=== PATIENT | male | born 1990 | race American Indian/Alaskan Native ===

== ENCOUNTER 2021-07-31 11:35 | Emergency (ER) | payer SELFPAY ==
[2021-07-31 11:43] VITALS: BP 105/74
--- NOTE | 2021-07-31 11:44 | Emergency Department Report ---
ED General Adult HPI - General Chief complaint: Weakness Stated complaint: BODYACHES PUI?: No Time Seen by Provider: 07/31/21 11:42 Source: patient Mode of arrival: Ambulatory Limitations: No Limitations - History of Present Illness Initial comments: 31 YO MALE COMES TO ER CO GENERALIZED WEAKNESS. WORSE WHEN HE STANDS UP NO FEVER NO CHILLS NO CP NO SOB NOT COVID IMMUNIZED DENIES MED HX - Related Data Allergies Allergy/AdvReac Type Severity Reaction Status Date / Time SHRIMP Allergy Hives Uncoded 07/31/21 11:38 ED Review of Systems ROS: Stated complaint: BODYACHES Other details as noted in HPI Comment: All other systems reviewed and negative ED Past Medical Hx - Past Medical History Previous Medical History?: No - Surgical History Past Surgical History?: No - Family History Family history: no significant - Social History Smoking Status: Never Smoker Substance Use Type: None ED Physical Exam - General Limitations: No Limitations General appearance: alert, in no apparent distress - Head Head exam: Present: atraumatic, normocephalic - Eye Eye exam: Present: normal appearance - ENT ENT exam: Present: mucous membranes moist - Neck Neck exam: Present: normal inspection - Respiratory Respiratory exam: Present: normal lung sounds bilaterally. Absent: respiratory distress - Cardiovascular Cardiovascular Exam: Present: regular rate, normal rhythm. Absent: systolic mur mur, diastolic murmur, rubs, gallop - GI/Abdominal GI/Abdominal exam: Present: soft, normal bowel sounds - Rectal Rectal exam: Present: deferred - Extremities Exam Extremities exam: Present: normal inspection - Back Exam Back exam: Present: normal inspection - Neurological Exam Neurological exam: Present: alert, oriented X3 - Psychiatric Psychiatric exam: Present: normal affect, normal mood - Skin Skin exam: Present: warm, dry, intact, normal color. Absent: rash ED Course Vital Signs 07/31/21 11:42 Temperature 98.5 F Pulse Rate 56 L Respiratory 16 Rate Blood Pressure 105/74 O2 Sat by Pulse 99 Oximetry ED Medical Decision Making - Lab Data Result diagrams: 07/31/21 11:51 07/31/21 11:51 - Radiology Data PT REFUSED - Medical Decision Making Lab Results 07/31/21 07/31/21 07/31/21 Range/Units 11:51 11:51 11:51 WBC 2.9 L (4.5-11.0) K/mm3 RBC 4.88 (3.65-5.03) M/mm3 Hgb 14.2 (11.8-15.2) gm/dl Hct 44.8 (35.5-45.6) % MCV 92 (84-94) fl MCH 29 (28-32) pg MCHC 32 (32-34) % RDW 13.7 (13.2-15.2) % Plt Count 107 L (140-440) K/mm3 Sodium 139 (137-145) mmol/L Potassium 3.6 (3.6-5.0) mmol/L Chloride 105.1 (98-107) mmol/L Carbon Dioxide 20 L (22-30) mmol/L Anion Gap 18 mmol/L BUN 12 (9-20) mg/dL Creatinine 0.8 (0.8-1.3) mg/dL Estimated GFR > 60 ml/min BUN/Creatinine Ratio 15 % Glucose 88 (75-100) mg/dL Calcium 8.7 (8.4-10.2) mg/dL Total Bilirubin 0.90 (0.1-1.2) mg/dL AST 20 (5-40) units/L ALT 11 (7-56) units/L Alkaline Phosphatase 45 (35-129) units/L Troponin T < 0.010 (0.00-0.029) ng/mL Total Protein 6.5 (6.3-8.2) g/dL Albumin 4.0 (3.9-5) g/dL Albumin/Globulin Ratio 1.6 % Vital Signs 07/31/21 11:42 Temperature 98.5 F Pulse Rate 56 L Respiratory 16 Rate Blood Pressure 105/74 O2 Sat by Pulse 99 Oximetry REFUSED XRAY- AND LEFT THE ER - Differential Diagnosis RO ANEMIA/INFECTION/HYPOTHYROIDISM Critical care attestation.: If time is entered above; I have spent that time in minutes in the direct care of this critically ill patient, excluding procedure time. ED Disposition Clinical Impression: Leukopenia, Thrombocytopenia Disposition: 07 LEFT AWOL/ELOPED Is pt being admited?: No Does the pt Need Aspirin: No Condition: Stable Referrals: PRIMARY CARE, [Primary Care Provider] - 3-5 Days RANDAL HERRERA MD [Staff Physician] - 3-5 Days Time of Disposition: 12:57
[2021-07-31 12:25] LABS: Hematocrit 44.8 % (35.5-45.6); Hemoglobin 14.2 gm/dl (11.8-15.2); Mean Corpuscular HGB Conc 32 % (32-34); Mean Corpuscular Volume 92 fl (84-94); Platelet Count 107 K/mm3 (140-440); Red Blood Count 4.88 M/mm3 (3.65-5.03); Red Cell Distribution Width 13.7 % (13.2-15.2)
[2021-07-31 12:48] LABS: Alanine Aminotransferase 11 units/L (7-56); BUN/Creatinine Ratio 15; Blood Urea Nitrogen 12 mg/dL (9-20); Calcium 8.7 mg/dL (8.4-10.2); Hemolysis Index 9
== END 2021-07-31 12:00 | disposition left against medical advice (07) ==
LOC: ED 11:35
DX: D69.6 Thrombocytopenia, unspecified (principal); D72.819 Decreased white blood cell count, unspecified; Z91.013 Allergy to seafood
CPT/HCPCS: 36415; 80053; 84484; 85027; 99282